=== PATIENT | female | born 1995 | race Caucasian/White ===

== ENCOUNTER → 2017-09-21 | Outpatient (REF) | payer BC, OTHER ==
[2017-09-21 20:40] LABS: INFLUENZA A AMPLIFICATION POSITIVE (NEGATIVE); INFLUENZA B AMPLIFICATION NEGATIVE (NEGATIVE); RSV AMPLIFICATION NEGATIVE (NEGATIVE)
== END ==
LOC: M LAB REF 19:49
DX: J11.1 Influenza due to unidentified influenza virus with other respiratory manifestations (principal)
CPT/HCPCS: 87430

== ENCOUNTER 2017-09-24 11:02 | Emergency (ER) | payer SELFPAY, BC, OTHER | END 2017-09-24 13:21 | disposition home or self-care (01) | LOC: M ED 11:02 | DX: J10.1 Influenza due to other identified influenza virus with other respiratory manifestations (principal); F17.210 Nicotine dependence, cigarettes, uncomplicated | CPT/HCPCS: 71046 ==

== ENCOUNTER 2018-04-10 19:43 | Emergency (ER) | payer OTHER, MEDICAID ==
[2018-04-10] MEDS: NORCO, ANEXSIA 5/325MG TABLET (HYDROcodone/ACETAMINOPHEN) PO (21:25)
== END 2018-04-10 21:40 | disposition home or self-care (01) ==
LOC: M ED 19:43
DX: S80.01XA Contusion of right knee, initial encounter (principal); V46 Car occupant injured in collision with other nonmotor vehicle; Y92.89 Other specified places as the place of occurrence of the external cause; Y93.9 Activity, unspecified; Y99.0 Civilian activity done for income or pay; F41.9 Anxiety disorder, unspecified; F32.9 Major depressive disorder, single episode, unspecified; Z72.0 Tobacco use
CPT/HCPCS: 73564

== ENCOUNTER 2018-05-06 11:33 | Outpatient (CLI) | payer OTHER ==
[2018-05-19 12:06] LABS: ALBUMIN 3.8 GM/DL (3.2-5.2); ALBUMIN/GLOBULIN RATIO 1.09 (1.00-1.93); ALKALINE PHOSPHATASE 91 U/L (45-117); ALT/SGPT 38 U/L (12-78); ANION GAP 9 MEQ/L (8-16); AST/SGOT 23 U/L (7-37); BILIRUBIN,TOTAL 0.3 MG/DL (0.2-1.0); BLOOD UREA NITROGEN 14 MG/DL (7-18); CALCIUM LEVEL 8.9 MG/DL (8.5-10.1); CARBON DIOXIDE LEVEL 26 MEQ/L (21-32); CHLORIDE LEVEL 104 MEQ/L (98-107); CREATININE FOR GFR 0.65 MG/DL (0.55-1.30); GLOMERULAR FILTRATION RATE > 60.0 (>60); GLUCOSE, FASTING 79 MG/DL (70-100); POTASSIUM SERUM 4.1 MEQ/L (3.5-5.1); SODIUM LEVEL 139 MEQ/L (136-145); TOTAL PROTEIN 7.3 GM/DL (6.4-8.2)
== END 2018-05-19 ==
LOC: M LAB 11:33
DX: R89.9 Unspecified abnormal finding in specimens from other organs, systems and tissues (principal)
CPT/HCPCS: 80053

== ENCOUNTER 2018-06-19 04:50 | Emergency (ER) | payer OTHER | END 2018-06-19 06:32 | disposition home or self-care (01) | LOC: M ED 04:50 | DX: S00.83XA Contusion of other part of head, initial encounter (principal); Y04.8XXA Assault by other bodily force, initial encounter; Y92.89 Other specified places as the place of occurrence of the external cause; J45.909 Unspecified asthma, uncomplicated; F41.9 Anxiety disorder, unspecified; F17.210 Nicotine dependence, cigarettes, uncomplicated | CPT/HCPCS: 70450 ==

== ENCOUNTER → 2018-11-16 | Outpatient (REF) | payer OTHER, MEDICAID ==
[~2018-11-16] MED LIST: HYDR-3715 PO; OSEL75CA2; PRED20TA PO; PROAAER10 INH
[2018-11-16 18:21] LABS: ALBUMIN 3.6 GM/DL (3.2-5.2); ALT/SGPT 29 U/L (12-78); BASO # 0.1 10^3/uL (0.0-0.2); BASO % 0.9 % (0.0-1.0); BILIRUBIN,TOTAL 0.2 MG/DL (0.2-1.0); BLOOD UREA NITROGEN 19 MG/DL (7-18); CALCIUM LEVEL 8.8 MG/DL (8.5-10.1); CARBON DIOXIDE LEVEL 29 MEQ/L (21-32); CHLORIDE LEVEL 109 MEQ/L (98-107); CHOLESTEROL LEVEL 187 MG/DL (<200); CHOLESTEROL RISK RATIO 3.116 (<5); CREATININE FOR GFR 0.78 MG/DL (0.55-1.30); EOS # 0.3 10^3/uL (0.0-0.50); EOS % 3.6 % (0.0-3.0); GLOMERULAR FILTRATION RATE > 60.0 (>60); GLUCOSE, FASTING 80 MG/DL (70-100); HDL CHOLESTEROL 60 MG/DL (>40); HEMOGLOBIN 13.4 g/dl (12.0-15.5); LDL CHOLESTEROL 107 MG/DL (<100); LYMPH # 1.8 10^3/uL (1.5-6.5); LYMPH % 26.3 % (24.0-44.0); MEAN CORPUSCULAR HEMOGLOBIN 29.6 pg (27.0-33.0); MEAN CORPUSCULAR HGB CONC 31.9 g/dl (32.0-36.5); MEAN CORPUSCULAR VOLUME 92.9 fl (80.0-96.0); MONO # 0.7 10^3/uL (0.0-0.8); NEUTROPHILS % 58.8 % (36.0-66.0); NON-HDL-C 127 MG/DL; PLATELET COUNT, AUTOMATED 287 10^3/uL (150-450); POTASSIUM SERUM 4.9 MEQ/L (3.5-5.1); RED BLOOD COUNT 4.52 10^6/uL (4.00-5.40); SODIUM LEVEL 143 MEQ/L (136-145); TOTAL PROTEIN 6.7 GM/DL (6.4-8.2); TRIGLYCERIDES LEVEL 102 MG/DL (<150); WHITE BLOOD COUNT 6.9 10^3/uL (4.0-10.0)
[2018-11-16 18:33] LABS: TOTAL 25(OH) VITAMIN D 11.4 NG/ML (30.0-100.0)
[2018-11-16 19:33] LABS: HEMOGLOBIN A1c 4.9 %
== END ==
LOC: M LAB REF 17:29
PROVIDERS: ATTEND Nurse Practitioner Family
DX: Z13.9 Encounter for screening, unspecified (principal)

== ENCOUNTER 2019-12-04 14:01 | Emergency (ER) | payer OTHER, MEDICAID ==
[~2019-12-04] VITALS: Ht 157.5 cm; Wt 97.7 kg
[2019-12-04] MEDS ORDERED: SERT50TA29 (14:07)
[2019-12-04] MEDS ORDERED: [UNRECOGNIZED DRUG - CODE] (14:07)
[2019-12-04] MEDS ORDERED: ALL10TAB29 (14:07)
[2019-12-04] MEDS ORDERED: NS 1,000 ML IV ONE (14:15)
[2019-12-04 14:50] LABS: BASO # 0.1 10^3/uL (0.0-0.2); BASO % 0.4 % (0.0-1.0); EOS % 0.3 % (0.0-3.0); HEMATOCRIT 41.8 % (36.0-47.0); HEMOGLOBIN 13.8 g/dl (12.0-15.5); LYMPH # 1.5 10^3/uL (1.5-5.0); LYMPH % 13.1 % (24.0-44.0); MEAN CORPUSCULAR HEMOGLOBIN 29.3 pg (27.0-33.0); MEAN CORPUSCULAR VOLUME 88.7 fl (80.0-96.0); MONO # 0.6 10^3/uL (0.0-0.8); MONO % 5.4 % (0.0-5.0); NEUTROPHILS # 9.2 10^3/uL (1.5-8.5); NEUTROPHILS % 80.4 % (36.0-66.0); PLATELET COUNT, AUTOMATED 336 10^3/uL (150-450); RED BLOOD COUNT 4.71 10^6/uL (4.00-5.40); WHITE BLOOD COUNT 11.4 10^3/uL (4.0-10.0)
--- NOTE | 2019-12-04 15:50 | REP ---
PELVIC ULTRASOUND: Real-time sonographic evaluation of the pelvis is performed utilizing transabdominal and endovaginal technique. Uterus measures 6.8 x 3.9 x 5.0 cm. Oval sac-like structure in the endometrial canal measures 3.2 x 1.2 x 1.5 cm for a mean diameter of 20 mm. This would correspond to an estimated gestational age of 7 weeks 0 days. There is no internal yolk sac or pole. Findings may represent a blighted ovum. However, ectopic cannot totally be excluded as this could represent a pseudo gestational sac. Right ovary measures 2.4 x 1.8 x 1.8 cm and left ovary 3.2 x 1.3 x 1.6 cm. Cystic structure in the left ovary may represent a corpus luteum 1.5 cm in maximum diameter. There is no other evidence of adnexal mass or free fluid. There is no evidence of ovarian torsion with duplex Doppler evaluation. IMPRESSION: Probable blighted ovum in the endometrial canal. Cannot exclude ectopic . Suggest correlation with serial quantitative beta hCG valves. Electronically Signed by Noé Luque MD 12/04/2019 05:04 P
[2019-12-04] MEDS ORDERED: KEFL500C17 PO (16:13)
[2019-12-04 16:23] VITALS: BP 118/75
[2019-12-05] MEDS ORDERED: ONDA4TAB6 PO (05:17)
[2019-12-05] MEDS ORDERED: IBUP-1114 PO (05:17)
[2019-12-05] MEDS ORDERED: METH0.2T53 PO (05:17)
== END 2019-12-04 16:27 | disposition home or self-care (01) ==
LOC: M ED 14:01
DX: O20.0 Threatened abortion (principal); O99.331 Smoking (tobacco) complicating pregnancy, first trimester; F17.210 Nicotine dependence, cigarettes, uncomplicated; Z3A.01 Less than 8 weeks gestation of pregnancy

== ENCOUNTER 2019-12-05 02:50 | Emergency (ER) | payer MEDICAID, OTHER ==
[~2019-12-05] VITALS: Ht 157.5 cm; Wt 93.3 kg
[~2019-12-05 02:50] MED LIST changes: +ALL10TAB29; +KEFL500C17 PO; +SERT50TA29; +[UNRECOGNIZED DRUG - CODE]
[2019-12-05] MEDS ORDERED: HYDROMORPHONE HCL 0.5 MG/ 0.5 ML SYRINGE (J1170 PER 1) IV PRN (03:15)
[2019-12-05] MEDS ORDERED: ONDANSETRON 4MG/2ML VIAL IV ONE (03:15)
[2019-12-05] MEDS ORDERED: NS 1,000 ML IV ONE (03:15)
[2019-12-05 03:26] LABS: BASO # 0.1 10^3/uL (0.0-0.2); BASO % 0.4 % (0.0-1.0); EOS # 0.1 10^3/uL (0.0-0.5); EOS % 0.9 % (0.0-3.0); HEMATOCRIT 37.5 % (36.0-47.0); HEMOGLOBIN 12.6 g/dl (12.0-15.5); LYMPH # 2.4 10^3/uL (1.5-5.0); LYMPH % 19.5 % (24.0-44.0); MEAN CORPUSCULAR HEMOGLOBIN 29.4 pg (27.0-33.0); MEAN CORPUSCULAR HGB CONC 33.6 g/dl (32.0-36.5); MEAN CORPUSCULAR VOLUME 87.6 fl (80.0-96.0); MONO # 0.8 10^3/uL (0.0-0.8); MONO % 6.6 % (0.0-5.0); NEUTROPHILS # 8.9 10^3/uL (1.5-8.5); NEUTROPHILS % 72.2 % (36.0-66.0); PLATELET COUNT, AUTOMATED 323 10^3/uL (150-450); RED BLOOD COUNT 4.28 10^6/uL (4.00-5.40); WHITE BLOOD COUNT 12.3 10^3/uL (4.0-10.0)
[2019-12-05 04:17] LABS: ALBUMIN 3.7 GM/DL (3.2-5.2); ALT/SGPT 69 U/L (12-78); BILIRUBIN,TOTAL 0.3 MG/DL (0.2-1.0); BLOOD UREA NITROGEN 17 MG/DL (7-18); CARBON DIOXIDE LEVEL 24 MEQ/L (21-32); CHLORIDE LEVEL 105 MEQ/L (98-107); CREATININE FOR GFR 0.77 MG/DL (0.55-1.30); GLOMERULAR FILTRATION RATE > 60.0 (>60); GLUCOSE, FASTING 107 MG/DL (70-100); HCG, SERUM QUANTITATIVE 438 MIU/ML; POTASSIUM SERUM 3.7 MEQ/L (3.5-5.1); SODIUM LEVEL 136 MEQ/L (136-145)
--- NOTE | 2019-12-05 04:30 | REPVR ---
PROCEDURE INFORMATION: Exam: US Duplex Artery or Vein of the Abdominal and/or Reproductive Organs, Limited Exam date and time: 12/05/2019 4:00 AM Clinical indication: Lmp or gestational age (in weeks): Lmp 3 7w 2d, but PT states confirmed 11wks at [facility]; Antepartum complications; Bleeding; ; Additional info: Bleeding/pain TECHNIQUE: Imaging protocol: Real-time duplex ultrasound scan of the arterial or venous flow of the abdomen and/or reproductive organs, with color Doppler flow and spectral waveform analysis with image documentation. Exam focused on the region of clinical interest. Duplex images were received to evaluate vascular conditions. COMPARISON: No relevant prior studies available. FINDINGS: The right ovary measures 2.9 x 2.6 x 1.5 cm and appears grossly unremarkable. Arterial blood flow seen to the right ovary with peak systolic velocity of 11.7 centimeter/second with resistive index of 0.66. Venous blood flow seen to the right ovary. Left adnexa: The left ovary is obscured by bowel gas. IMPRESSION: Normal ultrasound of the right ovary with no sonographic evidence of torsion or ectopic . Left ovary obscured by bowel gas. PROCEDURE INFORMATION: Exam: US First Trimester, Transabdominal and US , Transvaginal Exam date and time: 12/05/2019 4:00 AM Age: 24 years old Clinical indication: Lmp or gestational age (in weeks): Lmp 10/15/19 7w 2d, but PT states confirmed 11wks at [facility]; Antepartum complications; Bleeding; ; Additional info: Bleeding/pain TECHNIQUE: Imaging protocol: Real-time transabdominal obstetrical ultrasound of the maternal pelvis and a first trimester , less than 14 weeks 0 days, with image documentation. Transvaginal imaging was used for better evaluation of the fetus and adnexa. COMPARISON: No relevant prior studies available. FINDINGS: GESTATION: Gestation: No yolk sac seen. No pole seen. Heart rate: No heart rate is detected. Placenta: Not seen. Amniotic fluid: Amniotic is normal for gestational age. BIOMETRY: Estimated gestational age: 6 weeks and 6 days gestation by mean sac diameter. MATERNAL: Uterus: The uterus measures 8.3 x 4.5 x 3.9 centimetres. No focal uterine mass is seen. An elongated fluid collection measuring approximately 3.8 x 1.4 x 0.8 cm seen in the endometrium. Cervix: Unremarkable. Right adnexa: The right ovary measures 2.9 x 2.6 x 1.5 cm and appears grossly unremarkable. Arterial blood flow seen to the right ovary with peak systolic velocity of 11.7 centimeter/second with resistive index of 0.66. Left adnexa: The left ovary is obscured by bowel gas. Intraperitoneal: No intraperitoneal free fluid. IMPRESSION: An elongated endometrial fluid collection which could represent a gestational sac (though slightly abnormal in shape) is noted with mean sac diameter of 1.97 corresponding to 6 weeks and 6 days gestation. No pole or heart rate is detected. Correlation with beta HCG and follow-up ultrasound is recommended to document normal live intrauterine . Electronically signed by: Feroz Cain On 12/05/2019 04:30:23 AM
[2019-12-05] MEDS ORDERED: METHYLERGONOVINE MALEATE 0.2 MG TAB PO ONE (05:15)
[2019-12-05] MEDS ORDERED: ONDA4TAB6 PO (05:17)
[2019-12-05] MEDS ORDERED: IBUP-1114 PO (05:17)
[2019-12-05] MEDS ORDERED: METH0.2T53 PO (05:17)
[2019-12-05 06:11] LABS: HEMATOCRIT 39.4 % (36.0-47.0); HEMOGLOBIN 13.3 g/dl (12.0-15.5); MEAN CORPUSCULAR HGB CONC 33.8 g/dl (32.0-36.5); MEAN CORPUSCULAR VOLUME 88.7 fl (80.0-96.0); PLATELET COUNT, AUTOMATED 304 10^3/uL (150-450); RED BLOOD COUNT 4.44 10^6/uL (4.00-5.40); WHITE BLOOD COUNT 12.4 10^3/uL (4.0-10.0)
[2019-12-05 06:30] VITALS: BP 12/64
== END 2019-12-05 06:31 | disposition home or self-care (01) ==
LOC: M ED 02:50
DX: O20.0 Threatened abortion (principal); O99.331 Smoking (tobacco) complicating pregnancy, first trimester; Z3A.01 Less than 8 weeks gestation of pregnancy; Z79.899 Other long term (current) drug therapy
CPT/HCPCS: 76801; 76817; 80053; 84702; 85025; 85027; 86850; 86900; 86901; 93976; 96361; 96374; 99284; J1170; J2405

== ENCOUNTER → 2019-12-10 | Outpatient (REF) | payer OTHER ==
[~2019-12-10] MED LIST changes: +IBUP-1114 PO; +METH0.2T53 PO; +ONDA4TAB6 PO
== END ==
LOC: M PLALAB 13:59
PROVIDERS: ATTEND Advanced Practice Midwife
DX: O03.9 Complete or unspecified spontaneous abortion without complication (principal)

== ENCOUNTER 2020-05-07 20:56 | Emergency (ER) | payer OTHER ==
[~2020-05-07] VITALS: Ht 157.5 cm; Wt 90.8 kg
[~2020-05-07 20:56] MED LIST changes: -ALL10TAB29; +CETI-24
[2020-05-07 21:50] LABS: BASO # 0.1 10^3/uL (0.0-0.2); BASO % 0.5 % (0.0-1.0); EOS # 0.2 10^3/uL (0.0-0.5); HEMATOCRIT 38.2 % (36.0-47.0); HEMOGLOBIN 12.8 g/dl (12.0-15.5); LYMPH % 19.3 % (24.0-44.0); MEAN CORPUSCULAR HEMOGLOBIN 29.4 pg (27.0-33.0); MEAN CORPUSCULAR HGB CONC 33.5 g/dl (32.0-36.5); MEAN CORPUSCULAR VOLUME 87.8 fl (80.0-96.0); MONO # 0.7 10^3/uL (0.0-0.8); MONO % 6.6 % (0.0-5.0); NEUTROPHILS # 7.2 10^3/uL (1.5-8.5); NEUTROPHILS % 71.3 % (36.0-66.0); PLATELET COUNT, AUTOMATED 288 10^3/uL (150-450); RED BLOOD COUNT 4.35 10^6/uL (4.00-5.40); WHITE BLOOD COUNT 10.1 10^3/uL (4.0-10.0)
[2020-05-07 22:16] LABS: ALBUMIN 3.4 GM/DL (3.2-5.2); ALT/SGPT 37 U/L (12-78); BILIRUBIN,DIRECT < 0.1 MG/DL (0.0-0.2); BILIRUBIN,TOTAL 0.1 MG/DL (0.2-1.0); BLOOD UREA NITROGEN 9 MG/DL (7-18); CALCIUM LEVEL 9.3 MG/DL (8.5-10.1); CARBON DIOXIDE LEVEL 26 MEQ/L (21-32); CHLORIDE LEVEL 105 MEQ/L (98-107); CREATININE FOR GFR 0.54 MG/DL (0.55-1.30); GLOMERULAR FILTRATION RATE > 60.0 (>60); GLUCOSE, FASTING 84 MG/DL (70-100); LIPASE 88 U/L (73-393); POTASSIUM SERUM 3.6 MEQ/L (3.5-5.1); SODIUM LEVEL 136 MEQ/L (136-145); TOTAL PROTEIN 6.8 GM/DL (6.4-8.2)
[2020-05-07] MEDS ORDERED: ONDANSETRON 4MG/2ML VIAL IV ONE (23:15)
[2020-05-07] MEDS ORDERED: FAMOTIDINE IV BAG 20 MG in IV 1 EA IV ONE (23:15)
--- NOTE | 2020-05-08 00:08 | REPVR ---
PROCEDURE INFORMATION: Exam: US Abdomen, Limited; Right Upper Quadrant Exam date and time: 05/07/2020 11:44 PM Age: 25 years old Clinical indication: Abdominal pain; ; Additional info: Upper abd pain/vomiting TECHNIQUE: Imaging protocol: US abdomen. Real time ultrasound with image documentation. Limited exam focused on the right upper quadrant. COMPARISON: No relevant prior studies available. FINDINGS: Liver: Normal. No masses. Gallbladder: Gallbladder is not seen. There is echogenicity and shadowing in the gallbladder fossa without [id number]. However, gallstone filled gallbladder cannot be excluded. Common bile duct: CBD measures 3.0 mm in diameter. Pancreas: Visualized pancreas is unremarkable. Right kidney: Right kidney measures 11.5 cm in length. No right hydronephrosis. Normal echogenicity. IMPRESSION: Gallbladder is not seen. There is echogenicity and shadowing in the gallbladder fossa without [id number]. However, gallstone filled gallbladder cannot be excluded. Correlate with history. Electronically signed by: Oscar Gomez On 05/08/2020 00:07:59 AM
[2020-05-08 00:29] VITALS: BP 134/74
[2020-05-08] MEDS ORDERED: ONDA4TAB6 PO (00:29)
[2020-05-08] MEDS ORDERED: FAMO1TAB25 PO (00:29)
== END 2020-05-08 00:36 | disposition home or self-care (01) ==
LOC: M ED 20:56
DX: O21.9 Vomiting of pregnancy, unspecified (principal); O99.340 Other mental disorders complicating pregnancy, unspecified trimester; O99.330 Smoking (tobacco) complicating pregnancy, unspecified trimester
CPT/HCPCS: 76705; 80048; 80076; 81001; 83690; 84702; 85025; 96365; 99284; J2405

== ENCOUNTER → 2020-05-22 | Outpatient (REF) | payer OTHER ==
[~2020-05-22] MED LIST changes: +FAMO1TAB25 PO
[2020-05-22 17:49] LABS: HEMATOCRIT 43.2 % (36.0-47.0); HEMOGLOBIN 14.2 g/dl (12.0-15.5); MEAN CORPUSCULAR HEMOGLOBIN 30.2 pg (27.0-33.0); MEAN CORPUSCULAR HGB CONC 32.9 g/dl (32.0-36.5); MEAN CORPUSCULAR VOLUME 91.9 fl (80.0-96.0); PLATELET COUNT, AUTOMATED 285 10^3/uL (150-450); WHITE BLOOD COUNT 12.6 10^3/uL (4.0-10.0)
[2020-05-22 19:17] LABS: HEPATITIS C VIRUS ABY INDEX 0.1 INDEX (<0.8); HIV 1&2 SCREEN CENTAUR NEGATIVE (NEGATIVE)
== END ==
LOC: M PLALAB 14:59
PROVIDERS: ATTEND Advanced Practice Midwife
DX: O99.332 Smoking (tobacco) complicating pregnancy, second trimester (principal)

== ENCOUNTER → 2020-06-20 | Outpatient (CLI) | payer OTHER | LOC: M WHC 15:35 | PROVIDERS: ATTEND Obstetrics & Gynecology | DX: Z36.89 Encounter for other specified antenatal screening (principal); Z3A.18 18 weeks gestation of pregnancy; Z53.9 Procedure and treatment not carried out, unspecified reason ==

== ENCOUNTER → 2020-07-17 | Outpatient (CLI) | payer OTHER ==
--- NOTE | 2020-07-18 07:22 | REP ---
INDICATION: ANATOMY COMPARISON: None. TECHNIQUE: Transabdominal obstetrical ultrasound with color Doppler evaluation. FINDINGS: Examination demonstrates a single live intrauterine in cephalic presentation. motion is identified by technologist. Placenta is noted anterior and grade 1 with somewhat heterogeneous lobulated appearance. No evidence for placenta previa or abruption. Amniotic fluid volume is normal. Cervix measures 3.2 cm in length and appears closed.. Gestational age by LMP with BETH . Gestational age by current measurements 21 weeks 2 days with BETH 11/25/2020. FHR equals 140 beats per minute. BPD: 4.7 cm 20 weeks 2 days HC: 18.1 cm 20 weeks 4 days AC: 16.9 cm twenty-one weeks 6 days FL: 3.7 cm 21 weeks 5 days HL: 3.5 cm 22 weeks 0 days HC/AC: 1.07 Estimated weight 437 grams (63rdpercentile). Anatomical assessment demonstrates normal structures including cranium, choroid plexus, cavum, cerebellum/posterior fossa, facial features, lungs, four-chamber heart/ventricular outflow tracts, diaphragm, stomach, cord insertion/three-vessel cord, kidneys/bladder, spine, and extremities. IMPRESSION: 1. Heterogeneous lobulated appearance to the placenta without previa or obvious focal abnormality. 2. Anatomical assessment is complete and normal. <Electronically signed by Ole Rocha > 07/18/20 [id number]
== END ==
LOC: M WHC 13:08
PROVIDERS: ATTEND Obstetrics & Gynecology
DX: Z34.92 Encounter for supervision of normal pregnancy, unspecified, second trimester (principal); Z3A.21 21 weeks gestation of pregnancy

== ENCOUNTER → 2020-08-27 | Outpatient (REF) | payer OTHER ==
[2020-08-27 14:02] LABS: HEMATOCRIT 36.4 % (36.0-47.0); HEMOGLOBIN 11.6 g/dl (12.0-15.5); MEAN CORPUSCULAR HEMOGLOBIN 30.9 pg (27.0-33.0); MEAN CORPUSCULAR HGB CONC 31.9 g/dl (32.0-36.5); MEAN CORPUSCULAR VOLUME 97.1 fl (80.0-96.0); PLATELET COUNT, AUTOMATED 283 10^3/uL (150-450); RED BLOOD COUNT 3.75 10^6/uL (4.00-5.40); WHITE BLOOD COUNT 11.7 10^3/uL (4.0-10.0)
== END ==
LOC: M PLALAB 10:03
PROVIDERS: ATTEND Advanced Practice Midwife
DX: Z3A.22 22 weeks gestation of pregnancy (principal)

== ENCOUNTER → 2020-10-27 | Outpatient (REF) | payer OTHER | LOC: M SFHCWAGY 16:45 | PROVIDERS: ATTEND Obstetrics & Gynecology | DX: Z3A.36 36 weeks gestation of pregnancy (principal) ==

== ENCOUNTER → 2020-11-05 | Outpatient (REF) | payer OTHER | LOC: M PLALAB 14:58 | PROVIDERS: ATTEND Obstetrics & Gynecology | DX: R30.0 Dysuria (principal) ==

== ENCOUNTER → 2020-11-13 | Outpatient (REF) | payer OTHER | LOC: M SFHCWAGY 09:49 | PROVIDERS: ATTEND Advanced Practice Midwife | DX: Z36.89 Encounter for other specified antenatal screening (principal) ==

== ENCOUNTER 2020-11-28 14:18 | Inpatient (IN) | payer OTHER ==
[~2020-11-28] VITALS: Ht 157.5 cm; Wt 96.6 kg
[2020-11-28] MEDS ORDERED: VENTAER INH (14:54)
[2020-11-28] MEDS ORDERED: MULTTAB20 PO (14:54)
[2020-11-28] MEDS ORDERED: ZOFR4TAB16 PO (14:56)
[2020-11-28] MEDS ORDERED: ACET-683 PO (14:56)
[2020-11-28] MEDS ORDERED: SERT25TA85 PO (14:56)
[2020-11-28 15:36] VITALS: BP 128/82
[2020-11-28 15:52] LABS: HEMATOCRIT 35.2 % (36.0-47.0); HEMOGLOBIN 11.8 g/dl (12.0-15.5); MEAN CORPUSCULAR HEMOGLOBIN 30.3 pg (27.0-33.0); MEAN CORPUSCULAR HGB CONC 33.5 g/dl (32.0-36.5); MEAN CORPUSCULAR VOLUME 90.3 fl (80.0-96.0); PLATELET COUNT, AUTOMATED 253 10^3/uL (150-450); WHITE BLOOD COUNT 9.2 10^3/uL (4.0-10.0)
[2020-11-28 16:35] VITALS: BP 131/83
[2020-11-28 17:47] VITALS: BP 126/83
[2020-11-28] MEDS ORDERED: OXYTOCIN DRIP 30 UNITS in IV 1 EA IV PRN (18:10)
[2020-11-28] MEDS ORDERED: LACTATED RINGER'S 1000 ML IV STA (18:10)
[2020-11-28] MEDS ORDERED: LIDOCAINE 1% MDV 20ML VIAL INFIL PRN (18:10)
[2020-11-28] MEDS ORDERED: METHYLERGONOVINE MALEATE 0.2 MG/ML VIAL (J2210) IM PRN (18:10)
[2020-11-28] MEDS: miSOPROStol 50MCG 1/2 TABLET PO SCH (18:28)
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
[2020-11-28] MEDS ORDERED: BUTORPHANOL 2 MG/ML INJ (J0595) IV ONE (23:30)
[2020-11-28] MEDS ORDERED: PROMETHAZINE INJ 25 MG/ML VIAL (J2550) IV ONE (23:30)
[2020-11-29] VITALS (19 sets, daily range): BP systolic 108–147; BP diastolic 52–82
[2020-11-29] MEDS ORDERED: MAG Sulf (OBGYN) 20GM/500ML 20,000 MG in IV 1 EA IV SCH (01:05)
[2020-11-29] MEDS ORDERED: LR 1,000 ML IV SCH ×2 (01:10→10:40)
[2020-11-29] MEDS: miSOPROStol 50MCG 1/2 TABLET PO SCH ×2 (02:10→02:28)
[2020-11-29] MEDS ORDERED: BUTORPHANOL 2 MG/ML INJ (J0595) IV ONE (04:15)
[2020-11-29] MEDS ORDERED: PROMETHAZINE INJ 25 MG/ML VIAL (J2550) IV ONE (04:15)
[2020-11-29] MEDS ORDERED: FENTANYL 2MCG/ML ROPIVACAINE 0.2% IN 0.9% NACL 100ML IVBAG As Ordered ONE (08:24)
[2020-11-29] MEDS: FENTANYL/ROPIVACAINE/NACL BAG 100 ML EPIDURAL SCH ×2 (09:10→17:32)
[2020-11-29] MEDS ORDERED: ePHEDrine SULFATE 25 MG/5 ML(5MG/ML) SYRINGE IV PRN (10:05)
[2020-11-29] MEDS ORDERED: ONDANSETRON 4MG/2ML VIAL IV PRN (10:05)
[2020-11-29] MEDS ORDERED: LACTATED RINGER'S 1000 ML IV PRN (10:05)
[2020-11-29] MEDS ORDERED: EPIDURAL/PCA KEYS XX PRN (10:05)
[2020-11-29] MEDS ORDERED: NALOXONE INJ 0.4MG/1ML VIAL (J2310 PER 1MG) IV PRN (10:05)
[2020-11-29] MEDS ORDERED: REFRIGERATOR IV KEYS XX PRN (10:05)
[2020-11-29] MEDS ORDERED: diphenhydrAMINE 50MG/ML VIAL (J1200) IV PRN (10:05)
[2020-11-29] MEDS ORDERED: EPIDURAL COMMENT XX SCH (10:05)
[2020-11-29] MEDS ORDERED: OXYTOCIN DRIP 30 UNITS in IV 1 EA IV SCH (10:10)
[2020-11-30] VITALS (8 sets, daily range): BP systolic 112–131; BP diastolic 60–84
--- NOTE | 2020-11-30 03:21 | IPNPDOC ---
Obstetrical Progress Note Date of Service Nov 29, 2020 Subjective Late entry 1720 S: Patient comfortable with epidural. O: vss, AF Cat 1 tracing Gen: well appearing cx: 5/90/-2, AROM clear. A/P: 25yo G1 at 41wks for postdate IOL. Reassuring status -cont pitocin -re check in 5-6hrs Objective Vital Signs Date Time Temp Pulse Resp B/P (MAP) Pulse Ox O2 Delivery O2 Flow Rate FiO2 11/29/20 13:31 94 18 147/67 (93) 11/29/20 09:13 98.9 11/28/20 23:54 Room Air Assessment Variability: Moderate Heart Rate Tracing: Category I Tocometer Frequency: regular Sterile Vaginal Examination Dilation: 5 cm Effacement (%): 90% Station: -2 Cervical Consistency: Soft Cervical Position: Middle Postion/Presentation: Cephalic presentation Assessment and Plan Age: 25 : 1 Status: Reassuring MARIA LUZ NELSON MD. Nov 30, 2020 03:21
[2020-11-30] MEDS ORDERED: ceFAZolin 2 GM/D5W 50 ML IV BAG (J0690 PER 500MG) As Ordered ONE (03:23)
[2020-11-30] MEDS ORDERED: BICITRA 30ML SOLN UDC As Ordered ONE (03:23)
--- NOTE | 2020-11-30 03:23 | IPNPDOC ---
Obstetrical Progress Note Date of Service Nov 30, 2020 Subjective Feeling increase pressure. Objective Vital Signs Date Time Temp Pulse Resp B/P (MAP) Pulse Ox O2 Delivery O2 Flow Rate FiO2 11/29/20 13:31 94 18 147/67 (93) 11/29/20 09:13 98.9 11/28/20 23:54 Room Air Assessment Variability: Moderate Accelerations: Positive Decelerations: None Heart Rate Tracing: Category I Tocometer Contractions: Yes Frequency: regular, every 2-5 min. Sterile Vaginal Examination Dilation: 6 cm Effacement (%): 100% Station: -1 Cervical Consistency: Soft Postion/Presentation: Cephalic presentation Assessment and Plan Age: 25 : 1 Status: Reassuring Anticipate: Section (patient has had minimal change despite adequate pattern of contractions. Discussed these findings with the couple as well as her diagnosis of arrest of dilation. Recommendations to proceed with section at this time. All questions have been answered couple desires to proceed with section) MARIA LUZ NELSON MD. Nov 30, 2020 03:23
[2020-11-30] MEDS ORDERED: AZITHROMYCIN INJ 500MG VIAL (J0456 PER 500MG) As Ordered ONE (03:24)
[2020-11-30] MEDS ORDERED: BICITRA 30ML SOLN UDC PO ONE (03:25)
[2020-11-30] MEDS ORDERED: ceFAZolin SOD 2 GM in IV 1 EA IV ONE (03:25)
[2020-11-30] MEDS ORDERED: AZITHROMYCIN INJ 500 MG, VIAL MATE ADAPTER 1 EACH in NS 250 ML IV ONE (03:25)
[2020-11-30] MEDS ORDERED: MORPHINE PRES-FREE INJ 10 MG/10 ML VIAL (J2274) As Ordered ONE (03:43)
[2020-11-30] MEDS ORDERED: LIDOCAINE 2% W/EPINEPHRINE 20ML VIAL **PRES FREE As Ordered ONE (03:44)
[2020-11-30] MEDS ORDERED: OXYTOCIN INJ 10 UNITS/ML VIAL (J2590) As Ordered ONE (03:44)
[2020-11-30] MEDS ORDERED: MEASLES,MUMPS,RUBELLA VACCINE INJ (MMR-II) (90707) SC SCH (04:20)
[2020-11-30] MEDS ORDERED: SIMETHICONE 80MG CHEW TAB PO PRN (04:20)
[2020-11-30] MEDS ORDERED: PERCOCET 5MG/325MG TAB PO PRN ×2 (04:20)
[2020-11-30] MEDS ORDERED: RHOGAM 300 MCG (1500 IU) INJ (J2790) IM SCH (04:20)
[2020-11-30] MEDS ORDERED: MOM 30ML SUSPENSION UDC PO PRN (04:20)
[2020-11-30] MEDS ORDERED: LR 1,000 ML IV SCH (04:20)
[2020-11-30] MEDS ORDERED: OXYTOCIN DRIP 30 UNITS in IV 1 EA IV SCH (04:20)
[2020-11-30] MEDS ORDERED: ONDANSETRON 4MG/2ML VIAL IV PRN ×3 (04:20→05:30)
[2020-11-30] MEDS ORDERED: ONDANSETRON 4MG/2ML VIAL As Ordered ONE ×2 (04:21→04:34)
[2020-11-30] MEDS ORDERED: diphenhydrAMINE 50MG/ML VIAL (J1200) IV PRN (04:34)
[2020-11-30] MEDS ORDERED: METOCLOPRAMIDE INJ 10MG/2ML VIAL (J2765 PER 1) IV PRN (04:34)
[2020-11-30] MEDS ORDERED: NALOXONE INJ 0.4MG/1ML VIAL (J2310 PER 1MG) IV PRN ×2 (04:34)
[2020-11-30] MEDS ORDERED: NALBUPHINE HCL 10 MG/ML AMP (J2300) IV PRN (04:34)
[2020-11-30] MEDS ORDERED: dexameTHASONE 4 MG/ML 1ML VIAL (J1100 PER 1MG) As Ordered ONE (04:34)
[2020-11-30] MEDS ORDERED: KETOROLAC 60MG 2ML VIAL As Ordered ONE (04:35)
[2020-11-30] MEDS ORDERED: fentaNYL 100 MCG/2 ML INJECTION (J3010) IV PRN (05:30)
[2020-11-30] MEDS ORDERED: oxyCODONE 5MG TAB PO PRN (05:30)
[2020-11-30] MEDS ORDERED: PROMETHAZINE INJ 25 MG/ML VIAL (J2550) IV PRN (05:30)
[2020-11-30] MEDS ORDERED: OXYTOCIN 30 UNITS IN 0.9% NaCl 500ML IV BAG (J2590) As Ordered ONE (06:08)
[2020-11-30] MEDS: PRENATAL VITAMINS CHEWABLE TABLET PO SCH (08:04)
[2020-11-30] MEDS: DOCUSATE SODIUM 100MG CAPSULE PO SCH ×2 (08:04→20:26)
[2020-11-30] MEDS: KETOROLAC 30 MG/ML 1ML VIAL IV SCH ×3 (10:31→23:03)
--- NOTE | 2020-11-30 12:54 | ROOPDOC ---
[facility] Report Of Operation Report of Operation DATE OF PROCEDURE: 11/30/20 SURGEON: Esperanza Teresa M.D. WORKERS' COMPENSATION MAGISTRATE: None PROCEDURE: Primary section PREOPERATIVE DIAGNOSIS: 1.Arrest of dilation POSTOPERATIVE DIAGNOSIS: 1.Arrest of dilation ANESTHESIA: Spinal ESTIMATED BLOOD LOSS: 500 mL URINE OUTPUT: 125 mL INTRAVENOUS FLUIDS: 1000 mL of lactated Ringer's solution PREOPERATIVE ANTIBIOTICS:. 2 g of Dybro407 azithromycin OPERATIVE FINDINGS: Liveborn male , Apgars 8 and 9. Weight 3450 g or 7 lbs. 13 oz. SPECIMENS: None DESCRIPTION OF PROCEDURE: After informed consent was obtained and written consent was reviewed. The patient was brought to the operating room. She was then placed in the supine position with a left lateral tilt. Lee catheter was previously placed and to gravity. Patient was then prepped and draped in the normal sterile fashion. A timeout operating room was performed identifying the patient, procedure be performed as well as drug allergies. Anesthesia was tested and deemed to be adequate. Pfannenstiel skin incision was made and this was carried down to the underlying rectus fascia. The fascia was then scored and this incision was extended bilaterally. The fascia was then dissected off the underlying rectus muscle superiorly and inferiorly. The rectus muscles were then in the midline. The peritoneum is then entered. Vesicouterine peritoneum was then tented and excised and a bladder flap was created. Mobius retractor was then placed. Next, a curvilinear incision was then made in the lower uterine segment. The head was brought to the level of the incision atraumatically and delivered along the shoulders and corpus. The cord was clamped x2. The was brought over to the warmer with a good cry. Placenta was drained and delivered grossly intact. The uterus was cleared of all clots and debris and the uterine incision was then closed using 0 Vicryl in a running locking fashion followed. A second layer of 0 Vicryl was used for imbrication. The abdomen suctioned. Surgical sites reinspected and noted be hemostatic. The retractor was then removed. The anterior peritoneum was then reapproximated with 3-0 Vicryl. The rectus muscles were reapproximated 3-0 Vicryl. The fascia was then closed using 0 Vicryl in a running nonlocking fashion. The subcutaneous tissues was then irrigated and suctioned. Subcutaneous tissue was reapproximated using 3-0 Vicryl. Several subdermal stitch is placed using 3-0 Vicryl and the skin was closed with 4-0 Monocryl and subcuticular fashion. This incision was then cleaned and dried and was dressed. The patient was then taken to recovery in stable condition. All counts were correct. ESPERANZA TERESA MD. Nov 30, 2020 12:54
[2020-12-01 02:00] VITALS: BP 130/72
[2020-12-01 06:00] VITALS: BP 118/68
[2020-12-01] MEDS: IBUPROFEN 800 MG TAB PO SCH ×3 (06:18→22:20)
--- NOTE | 2020-12-01 07:22 | IPNPDOC ---
Progress Note Date of Service: Dec 01, 2020 Day#: 1 Progress Note SUBJECT: Doing well without complaints. Ambulating, voiding and pain is well-c ontrolled. Reports minimal lochia. OBJECTIVE: VITAL SIGNS: Within normal limits, afebrile. Alert and oriented times three. Abdomen: Fundus firm at U-2. Soft, NTTP. Incision: dressed Ext: neg calf tenderness. ASSESSMENT: /postoperative day #1 status post delivery. Recovering in stable condition. PLAN: 1. Continue routine /postoperative care 2. Discharge plans for tomorrow VS, I&O, 24H, Fishbone Vital Signs/I&O Vital Signs Date Time Temp Pulse Resp B/P (MAP) Pulse Ox O2 Delivery O2 Flow Rate FiO2 12/01/20 06:00 97.6 98 18 118/68 (85) 99 Room Air I&O- Last 24 Hours up to 6 AM 12/01/20 06:00 Intake Total 2700 ml Output Total 1780 ml Balance 920 ml MARIA LUZ NELSON MD. Dec 01, 2020 07:22
[2020-12-01] MEDS ORDERED: IBUP80TA PO (07:23)
[2020-12-01] MEDS ORDERED: PERCOCET PO (07:23)
[2020-12-01] MEDS: PRENATAL VITAMINS CHEWABLE TABLET PO SCH (08:15)
[2020-12-01] MEDS: DOCUSATE SODIUM 100MG CAPSULE PO SCH ×2 (08:15→20:24)
[2020-12-01 08:31] LABS: HEMATOCRIT 24.5 % (36.0-47.0); HEMOGLOBIN 7.9 g/dl (12.0-15.5); MEAN CORPUSCULAR HEMOGLOBIN 29.8 pg (27.0-33.0); MEAN CORPUSCULAR HGB CONC 32.2 g/dl (32.0-36.5); MEAN CORPUSCULAR VOLUME 92.5 fl (80.0-96.0); PLATELET COUNT, AUTOMATED 223 10^3/uL (150-450); RED BLOOD COUNT 2.65 10^6/uL (4.00-5.40); WHITE BLOOD COUNT 13.9 10^3/uL (4.0-10.0)
[2020-12-01 10:20] VITALS: BP 139/87
[2020-12-01 18:00] VITALS: BP 138/80
[2020-12-01 22:00] VITALS: BP 132/90
[2020-12-02 02:00] VITALS: BP 120/81
[2020-12-02 06:00] VITALS: BP 122/79
[2020-12-02] MEDS: IBUPROFEN 800 MG TAB PO SCH ×2 (06:08→14:04)
[2020-12-02] MEDS: DOCUSATE SODIUM 100MG CAPSULE PO SCH (08:52)
[2020-12-02] MEDS: PRENATAL VITAMINS CHEWABLE TABLET PO SCH (08:52)
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
== END 2020-12-02 16:48 | disposition home or self-care (01) | DRG 540 ==
LOC: M LDI 14:18 → M OBS 11-30 07:40
PROVIDERS: ADMIT Advanced Practice Midwife; ATTEND Advanced Practice Midwife
PROC: 3E033VJ Introduction of Other Hormone into Peripheral Vein, Percutaneous Approach (ICD-10-PCS; 2020-11-28)
PROC: 10907ZC Drainage of Amniotic Fluid, Therapeutic from Products of Conception, Via Natural or Artificial Opening (ICD-10-PCS; 2020-11-28)
PROC: 10D00Z1 Extraction of Products of Conception, Low, Open Approach (ICD-10-PCS; principal; 2020-11-30 04:00)
DX: O48.0 Post-term pregnancy (principal); Z37.0 Single live birth; Z3A.41 41 weeks gestation of pregnancy; O62.0 Primary inadequate contractions

== ENCOUNTER → 2021-11-26 | Outpatient (REF) | payer OTHER ==
[~2021-11-26] MED LIST changes: +ACET-683 PO; +FAMO10TA50 PO; -FAMO1TAB25 PO; +IBUP80TA PO; +MULTTAB20 PO; +PERCOCET PO; +SERT25TA85 PO; +VENTAER INH; +ZOFR4TAB16 PO
[2021-11-26 17:03] LABS: APPEARANCE, URINE HAZY (CLEAR); BACTERIA, URINE AUTO NEGATIVE (NEGATIVE); BILIRUBIN, URINE AUTO NEGATIVE (NEGATIVE); BLOOD, URINE BLOOD NEGATIVE (NEGATIVE); COLOR, URINE YELLOW (YELLOW); GLUCOSE, URINE (UA) AUTO NEGATIVE (NEGATIVE); KETONE, URINE AUTO NEGATIVE (NEGATIVE); LEUKOCYTE ESTERASE, URINE AUTO NEGATIVE (NEGATIVE); MUCUS, URINE SMALL (NEGATIVE); NITRITE, URINE AUTO NEGATIVE (NEGATIVE); PROTEIN, URINE AUTO NEGATIVE (NEGATIVE); RBC, URINE AUTO 0 /HPF (0-3); SPECIFIC GRAVITY URINE AUTO 1.023 (1.002-1.035); SQUAMOUS EPITHELIAL CELL UR AU 5 /HPF (0-6); UROBILINOGEN, URINE AUTO 0.2 mg/dL (0.0-2.0); WBC, URINE AUTO 1 /HPF (0-3)
== END ==
LOC: M SMT 16:33
PROVIDERS: ATTEND Nurse Practitioner Women's Health
DX: N39.3 Stress incontinence (female) (male) (principal)

== ENCOUNTER 2022-01-23 16:53 | Emergency (ER) | payer OTHER ==
[~2022-01-23] VITALS: Ht 157.5 cm; Wt 93.2 kg
[2022-01-23] MEDS ORDERED: SERT50TA29 (17:01)
[2022-01-23] MEDS ORDERED: NORCO, ANEXSIA 5/325MG TABLET (HYDROcodone/ACETAMINOPHEN) PO ONE (17:30)
[2022-01-23] MEDS ORDERED: HYDR-3713 PO (20:45)
[2022-01-23 20:54] VITALS: BP 132/83
== END 2022-01-23 20:59 | disposition home or self-care (01) ==
LOC: M ED 16:53
DX: S82.831A Other fracture of upper and lower end of right fibula, initial encounter for closed fracture (principal); W19.XXXA Unspecified fall, initial encounter; Y92.89 Other specified places as the place of occurrence of the external cause; F17.200 Nicotine dependence, unspecified, uncomplicated

== ENCOUNTER 2022-01-24 08:27 | Emergency (ER) | payer OTHER ==
[~2022-01-24] VITALS: Ht 157.5 cm; Wt 93.2 kg
[~2022-01-24 08:27] MED LIST changes: +HYDR-3713 PO
[2022-01-24 10:25] VITALS: BP 128/94
[2022-01-24] MEDS ORDERED: NORCO, ANEXSIA 5/325MG TABLET (HYDROcodone/ACETAMINOPHEN) PO ONE (10:25)
== END 2022-01-24 10:37 | disposition home or self-care (01) ==
LOC: M ED 08:27
DX: S82.831D Other fracture of upper and lower end of right fibula, subsequent encounter for closed fracture with routine healing (principal); W19.XXXD Unspecified fall, subsequent encounter; Y92.89 Other specified places as the place of occurrence of the external cause; F17.200 Nicotine dependence, unspecified, uncomplicated; J45.909 Unspecified asthma, uncomplicated

== ENCOUNTER 2022-01-30 22:12 | Emergency (ER) | payer OTHER ==
[~2022-01-30] VITALS: Ht 157.5 cm; Wt 95.5 kg
[2022-01-30 22:12] VITALS: BP 136/86
== END 2022-01-31 02:54 | disposition home or self-care (01) ==
LOC: M ED 22:12
DX: Z46.89 Encounter for fitting and adjustment of other specified devices (principal); S82.831A Other fracture of upper and lower end of right fibula, initial encounter for closed fracture; J45.909 Unspecified asthma, uncomplicated; F17.200 Nicotine dependence, unspecified, uncomplicated; Z79.899 Other long term (current) drug therapy

== ENCOUNTER → 2022-02-04 | Outpatient (CLI) | payer OTHER ==
[~2022-02-04] MED LIST changes: +FLON1SPR; +LEVOTAB10 PO; +SERT50TA29 PO
== END ==
LOC: M LABSMTC 09:15
PROVIDERS: ATTEND Anesthesiology
DX: Z01.812 Encounter for preprocedural laboratory examination (principal); Z20.822 Contact with and (suspected) exposure to COVID-19

== ENCOUNTER 2022-02-08 13:47 | Day surgery (SDC) | payer OTHER ==
[~2022-02-08] VITALS: Ht 157.5 cm; Wt 95.3 kg
[2022-02-08] MEDS ORDERED: LR 1,000 ML IV SCH ×2 (14:10→18:45)
[2022-02-08] MEDS ORDERED: EPINEPHrine INJ 1 MG/ML 1ML AMP PN ONE ×2 (16:25→18:45)
[2022-02-08] MEDS ORDERED: LIDOCAINE 1% SDV 5ML VIAL PN ONE (16:25)
[2022-02-08] MEDS ORDERED: dexameTHASONE 10MG/1ML VIAL PRES.FREE (J1100 PER 1MG) PN ONE ×2 (16:25→18:45)
[2022-02-08] MEDS ORDERED: MIDAZOLAM INJ 2MG/2ML VIAL (J2250 PER 1MG) IV PRN ×2 (16:25→18:45)
[2022-02-08] MEDS ORDERED: fentaNYL 100 MCG/2 ML INJECTION IV PRN ×3 (16:25→18:45)
[2022-02-08] MEDS ORDERED: ROPIvacaine 0.5% 30ML INJECTION (J2795 PER 1MG) PN ONE ×2 (16:25→18:45)
[2022-02-08] MEDS ORDERED: ceFAZolin 2 GM/D5W 50 ML IV BAG (J0690 PER 500MG) As Ordered ONE (17:14)
[2022-02-08] MEDS ORDERED: TRANEXAMIC ACID 100 MG/ML 10ML VIAL As Ordered ONE (17:14)
[2022-02-08] MEDS ORDERED: propofoL 200 MG/20 ML VIAL As Ordered ONE (18:09)
[2022-02-08] MEDS ORDERED: ROCURONIUM BROMIDE 50 MG/5 ML VIAL As Ordered ONE ×2 (18:09→18:50)
[2022-02-08] MEDS ORDERED: LIDOCAINE 2% INJ 100 MG/5 ML SYRINGE As Ordered ONE (18:09)
[2022-02-08] MEDS ORDERED: MIDAZOLAM INJ 2MG/2ML VIAL (J2250 PER 1MG) As Ordered ONE (18:09)
[2022-02-08] MEDS ORDERED: fentaNYL 100 MCG/2 ML INJECTION As Ordered ONE ×2 (18:09→18:15)
[2022-02-08] MEDS ORDERED: PHENYLephrine 500MCG 5ML (100MCG/ML) SYRINGE As Ordered ONE ×2 (18:22→20:12)
[2022-02-08] MEDS ORDERED: ALBUTEROL 6.7GM INHALER **FOR ANES. CART/OMNICELL ONLY As Ordered ONE (18:23)
[2022-02-08] MEDS ORDERED: dexameTHASONE 4 MG/ML 1ML VIAL (J1100 PER 1MG) As Ordered ONE (18:42)
[2022-02-08] MEDS ORDERED: ONDANSETRON 4MG/2ML VIAL As Ordered ONE ×2 (18:42→20:57)
[2022-02-08] MEDS ORDERED: oxyCODONE 5MG TAB PO PRN (18:45)
[2022-02-08] MEDS ORDERED: ONDANSETRON 4MG/2ML VIAL IV PRN (18:45)
[2022-02-08] MEDS ORDERED: VANCOMYCIN 1000MG/20ML VIAL As Ordered ONE (19:31)
[2022-02-08] MEDS ORDERED: SUGAMMADEX SODIUM 500 MG/5 ML VIAL (BRIDION) As Ordered ONE (19:31)
[2022-02-08] MEDS ORDERED: LIDOCAINE 1% MDV 20ML VIAL As Ordered ONE (19:46)
[2022-02-08] MEDS ORDERED: EPINEPHrine 1MG/ML INJ 30ML MD-VIAL As Ordered ONE (19:59)
[2022-02-08] MEDS ORDERED: METOCLOPRAMIDE INJ 10MG/2ML VIAL (J2765 PER 1) As Ordered ONE (20:49)
[2022-02-08 22:30] VITALS: BP 118/75
== END 2022-02-08 22:40 | disposition home or self-care (01) ==
LOC: M SDC 13:47
PROVIDERS: ATTEND Orthopaedic Surgery
DX: S82.61XA Displaced fracture of lateral malleolus of right fibula, initial encounter for closed fracture (principal); X50.1XXA Overexertion from prolonged static or awkward postures, initial encounter; Y92.838 Other recreation area as the place of occurrence of the external cause; Y93.9 Activity, unspecified; F41.9 Anxiety disorder, unspecified; F32.A Depression, unspecified; F43.10 Post-traumatic stress disorder, unspecified; J45.909 Unspecified asthma, uncomplicated; F17.210 Nicotine dependence, cigarettes, uncomplicated; Z79.899 Other long term (current) drug therapy
CPT/HCPCS: 27829; 64445; 76000; 81025; C1713; J0171; J0690; J1100; J2250; J2370; J2405; J2765; J3010; J3370

== ENCOUNTER → 2022-03-18 | Outpatient (CLI) | payer OTHER | LOC: M SOG 08:22 | PROVIDERS: ATTEND Orthopaedic Surgery | DX: Z47.89 Encounter for other orthopedic aftercare (principal); S82.491D Other fracture of shaft of right fibula, subsequent encounter for closed fracture with routine healing ==

== ENCOUNTER → 2022-04-07 | Outpatient (CLI) | payer OTHER | LOC: M SOG 13:17 | PROVIDERS: ATTEND Orthopaedic Surgery | DX: S82.441D Displaced spiral fracture of shaft of right fibula, subsequent encounter for closed fracture with routine healing (principal) ==

== ENCOUNTER → 2022-08-19 | Outpatient (REF) | payer OTHER | LOC: M LAB REF 16:29 | PROVIDERS: ATTEND Physician Assistant | DX: Z12.4 Encounter for screening for malignant neoplasm of cervix (principal); Z11.3 Encounter for screening for infections with a predominantly sexual mode of transmission ==

== ENCOUNTER → 2022-11-11 | Outpatient (CLI) | payer OTHER ==
[2022-11-11 09:10] LABS: HEMATOCRIT 42.3 % (36.0-47.0); HEMOGLOBIN 13.8 g/dl (12.0-15.5); MEAN CORPUSCULAR HEMOGLOBIN 29.4 pg (27.0-33.0); MEAN CORPUSCULAR HGB CONC 32.6 g/dl (32.0-36.5); MEAN CORPUSCULAR VOLUME 90.2 fl (80.0-96.0); PLATELET COUNT, AUTOMATED 300 10^3/uL (150-450); RED BLOOD COUNT 4.69 10^6/uL (4.00-5.40); WHITE BLOOD COUNT 6.3 10^3/uL (4.0-10.0)
[2022-11-11 09:40] LABS: ALBUMIN 3.5 G/DL (3.2-5.2); ALKALINE PHOSPHATASE 93 U/L (46-116); ALT/SGPT 32 U/L (7.0-40); AST/SGOT 21 U/L (<34); BILIRUBIN,TOTAL 0.5 MG/DL (0.3-1.2); BLOOD UREA NITROGEN 12 MG/DL (9-23); CALCIUM LEVEL 8.6 MG/DL (8.5-10.1); CARBON DIOXIDE LEVEL 27 MMOL/L (20-31); CHLORIDE LEVEL 107 MMOL/L (98-107); CHOLESTEROL LEVEL 176 MG/DL (<200); CHOLESTEROL RISK RATIO 3.74 (<5); GLOMERULAR FILTRATION RATE > 60.0 (>60); GLUCOSE, FASTING 88 MG/DL (60-100); LDL CHOLESTEROL 113.6 MG/DL (<100); POTASSIUM SERUM 4.4 MMOL/L (3.5-5.1); SODIUM LEVEL 138 MMOL/L (136-145); TOTAL PROTEIN 6.2 G/DL (5.7-8.2); TRIGLYCERIDES LEVEL 77 MG/DL (<150)
[2022-11-11 09:42] LABS: THYROID STIMULATING HORMONE 2.727 uIU/ML (0.55-4.78)
== END ==
LOC: M LAB 08:22
PROVIDERS: ATTEND Physician Assistant
DX: Z13.220 Encounter for screening for lipoid disorders (principal); Z13.1 Encounter for screening for diabetes mellitus; E66.9 Obesity, unspecified

== ENCOUNTER → 2023-05-19 | Outpatient (REF) | payer OTHER ==
[2023-05-19 18:11] LABS: GC DNA AMPLIFICATION NEGATIVE (NEGATIVE)
== END ==
LOC: M LAB REF 16:26
PROVIDERS: ATTEND Nurse Practitioner Family
DX: Z11.3 Encounter for screening for infections with a predominantly sexual mode of transmission (principal)

== ENCOUNTER → 2024-04-02 | Outpatient (REF) | payer OTHER ==
[~2024-04-02] MED LIST changes: +ONDA-282 PO; -ONDA4TAB6 PO
[2024-04-02 17:12] LABS: Trichomonas vaginalis (AMP) NOT DETECTED (NEGATIVE)
[2024-04-02 17:36] LABS: GC DNA AMPLIFICATION NEGATIVE (NEGATIVE)
== END ==
LOC: M LAB REF 15:57
PROVIDERS: ATTEND Physician Assistant
DX: Z11.3 Encounter for screening for infections with a predominantly sexual mode of transmission (principal)

== ENCOUNTER → 2024-09-13 | Outpatient (REF) | payer OTHER ==
[2024-09-13 18:52] LABS: BASO # 0.1 10^3/uL (0.0-0.2); BASO % 0.7 % (0.0-1.0); EOS # 0.2 10^3/uL (0.0-0.5); EOS % 1.9 % (0.0-3.0); HEMATOCRIT 41.6 % (36.0-47.0); HEMOGLOBIN 13.7 g/dl (12.0-15.5); LYMPH # 2.4 10^3/uL (1.5-5.0); LYMPH % 26.2 % (24.0-44.0); MEAN CORPUSCULAR HEMOGLOBIN 30.2 pg (27.0-33.0); MEAN CORPUSCULAR HGB CONC 32.9 g/dl (32.0-36.5); MEAN CORPUSCULAR VOLUME 91.6 fl (80.0-96.0); MONO # 0.6 10^3/uL (0.0-0.8); MONO % 6.9 % (2.0-8.0); NEUTROPHILS # 5.8 10^3/uL (1.5-8.5); PLATELET COUNT, AUTOMATED 294 10^3/uL (150-450); RED BLOOD COUNT 4.54 10^6/uL (4.00-5.40)
[2024-09-13 18:59] LABS: ALBUMIN 3.8 G/DL (3.2-5.2); ALKALINE PHOSPHATASE 89 U/L (35-104); ALT/SGPT 57 U/L (7.0-40); AST/SGOT 21 U/L (<34); BILIRUBIN,TOTAL 0.4 MG/DL (0.3-1.2); BLOOD UREA NITROGEN 13 MG/DL (9-23); CALCIUM LEVEL 9.2 MG/DL (8.5-10.1); CARBON DIOXIDE LEVEL 27 MMOL/L (20-31); CHLORIDE LEVEL 105 MMOL/L (98-107); CHOLESTEROL LEVEL 214 MG/DL (<200); CHOLESTEROL RISK RATIO 4.03 (<5); CREATININE FOR GFR 0.65 MG/DL (0.55-1.30); GLOMERULAR FILTRATION RATE > 60.0 (>60); GLUCOSE, FASTING 80 MG/DL (60-100); HDL CHOLESTEROL 53.1 MG/DL (>40); LDL CHOLESTEROL 137.5 MG/DL (<100); MAGNESIUM LEVEL 1.9 MG/DL (1.8-2.4); NON-HDL-C 160.9 MG/DL; POTASSIUM SERUM 4.3 MMOL/L (3.5-5.1); SODIUM LEVEL 141 MMOL/L (136-145); THYROID STIMULATING HORMONE 2.284 uIU/ML (0.55-4.78); TOTAL 25(OH) VITAMIN D 16.7 NG/ML (20.0-100.0); TOTAL PROTEIN 7.1 G/DL (5.7-8.2); TRIGLYCERIDES LEVEL 117 MG/DL (<150)
[2024-09-13 19:46] LABS: HEMOGLOBIN A1c 4.9 % (4.0-6.0)
== END ==
LOC: M LAB REF 16:43
PROVIDERS: ATTEND Nurse Practitioner Family
DX: E66.01 Morbid (severe) obesity due to excess calories (principal); E55.9 Vitamin D deficiency, unspecified

== ENCOUNTER → 2025-03-27 | Outpatient (REF) | payer OTHER | LOC: M LAB REF 16:26 | PROVIDERS: ATTEND Physician Assistant | DX: E55.9 Vitamin D deficiency, unspecified (principal) ==

== ENCOUNTER → 2025-04-09 | Outpatient (REF) | LOC: M PLAIMG 10:53 | PROVIDERS: ATTEND Internal Medicine | DX: R52 Pain, unspecified (principal) ==